=== PATIENT | male | born 1935 | race Two or more races ===

== ENCOUNTER 2020-08-26 14:54 | Emergency (ER) | payer SELFPAY ==
[~2020-08-26] VITALS: Ht 170.2 cm; Wt 79.4 kg
[2020-08-26] MEDS ORDERED: SODIUM CHLORIDE 0.9% 1,000 ML IV ONE (15:30)
[2020-08-26 15:48] VITALS: BP 121/67
[2020-08-26] MEDS ORDERED: cefTRIAXone W LIDOCAINE 1 GM IM IM ONE (17:00)
[2020-08-26] MEDS ORDERED: TETANUS-DIPTH-ACEL PERTUSSIS 0.5ML SYR Tdap IM ONE (17:00)
== END 2020-08-26 18:09 | disposition home or self-care (01) ==
LOC: ER 14:54 → EDBD 14:54 → ER 18:09
DX: S01.01XA Laceration without foreign body of scalp, initial encounter (principal); S09.90XA Unspecified injury of head, initial encounter; M50.322 Other cervical disc degeneration at C5-C6 level; Z88.2 Allergy status to sulfonamides; W19.XXXA Unspecified fall, initial encounter; Y93.89 Activity, other specified; Y92.89 Other specified places as the place of occurrence of the external cause; Y99.8 Other external cause status
CPT/HCPCS: 12002; 70450; 72125; 96360; 99285; J0696; J7030